=== PATIENT | male | born 1955 | race Two or more races ===

== ENCOUNTER 2023-11-24 06:23 | Inpatient (IN) | payer MEDICARE, SELFPAY ==
--- NOTE | 2023-11-16 12:37 | CM ---
Patient is scheduled for lumbar spine surgery on 11/24/23. Spoke with patient prior to surgery via telephone. Introduced role of the Orthopedic Navigator. Patient reports that he lives with his in a two story home. There are three steps to enter
and a flight of steps to the second floor. He currently functions independently. He has no DME and has never had VN services.
Discussed orthopedic program, post surgical plans and tentative plan for patient to return home when directed by surgeon. Patient is in agreement with tentative plan and will have support from his when he goes home.
Plan: Orthopedic Navigator will remain available to assist with the care of patient and will reassess discharge needs after surgery.
[2023-11-19 10:52] VITALS: BMI 28.2
[2023-11-24] VITALS (15 sets, daily range): BP systolic 10–155; BP diastolic 66–95; PULSE 80; O2SAT 94; BMI 28.2
[2023-11-24] MEDS: LYRICA 150 MG PO (08:41)
[2023-11-24] MEDS: CELEBREX 200 MG PO (08:41)
[2023-11-24] MEDS: NORMOSOL-R 1000 IV ×2 (08:42→15:32)
[2023-11-24] MEDS: SKELAXIN 800 MG PO (08:42)
[2023-11-24] MEDS: TYLENOL 1000 MG PO ×3 (08:42→20:03)
--- NOTE | 2023-11-24 09:18 | W.SUR.PREOP ---
Pre-Operative Surgical Note
-
I have examined this patient prior to the performance of the scheduled procedure.
He does not have pain in S1 distribution. We will be doing a Left L4-5 hemilam and fusion for the listhesis
--- NOTE | 2023-11-24 09:19 | W.PN.SP ---
Today's Communication / Plan
-
FOr Sx
Subjective / Objective
Subjective Data
Pt had L5 pain MRIshowed severe stenosis at L5-S1. Spoke with and decided to do L5-S1 decompression
Objective Data
Vital Signs
Temp Pulse Resp BP Pulse Ox
98 F 80 16 139/89 95
11/24/23 08:32 11/24/23 08:32 11/24/23 08:32 11/24/23 08:32 11/24/23 08:32
Physical Exam
-
NVI
[2023-11-24] MEDS: DILAUDID 0.5 MG IV ×2 (15:01→15:38)
--- NOTE | 2023-11-24 15:16 | W.PN.ORTHO ---
Today's Communication / Plan
-
D/c when clinically stable.
Assessment
.
Distal Motor Intact: Yes
Dressing:
Clean, dry and intact.
Assessment:
Lumbar stenosis with neurogenic claudication and lumbar spondylolisthesis s/p left L4-L5, L5-S1 hemilaminectomy and L4-L5 PSF w/ Hilton 11/24/23
DVT prophylaxis - b/l SCDs/TEDs
+ Hemovac drain - monitor output overnight - d/c in AM if output minimal
GERD - resume PPI therapy
Hyperlipidemia
Colon polyps
Benign essential tremor
Osteoarthritis
Prostate cancer, status post prostatectomy 06/2023
Melanoma, chin, status post excision 2017
Prediabetes
Anxiety
Daily alcohol - 1-2 alcoholic beverages/daily
Plan
.
Surgery / Date: L L4-L5, L5-S1 hemilami and L4-L5 PSF w/ Hilton 11/24
DVT Prophylaxis: Other (b/l SCDs/TEDs )
Activity:
Out of bed.
PT/OT
Discharge Plan: Home
Subjective
.
.:
Patient examined resting in PACU.
Groggy from GA and pre-op pain meds; however, is arousable to verbal stimuli.
Reports 8/10 low back - medicated w/ IV Dilaudid.
Denies any other significant complaints.
Vital Signs and Labs
.
Vital Signs and Labs:
Temp Pulse Resp BP Pulse Ox
97.8 F 91 14 150/66 97
11/24/23 14:43 11/24/23 15:13 11/24/23 15:13 11/24/23 15:00 11/24/23 15:13
Physical Exam
-
HEENT: No pallor, cyanosis, or jaundice. Throat clear.
NECK: Supple. No JVD.
RESPIRATORY: Lungs clear to auscultation.
CVS: S1, S2 normal. RRR.�
ABDOMEN: Soft, non-tender. No distension.
EXTREMITIES: Strength equal, no calf pain with palpation/dorsiflexion. Calves soft.
BOBBIN COLLECTOR: AOx3. spring tester grossly intact
--- NOTE | 2023-11-24 16:32 | PTCARENOTE ---
Pt arrived to [facility] from PACU s/p left L4-5 hemilami/PSF. Pt satting 95% on 2L NC, IVF infusing. Pt NV intact, dressing C/D/I, hemovac in place draining sanguineous. Pt states pain 6-04/13. Pt oriented to call [facility] and room, bed locked and in
lowest position, call prescott within reach.
[2023-11-24] MEDS: COLACE PO (16:49)
[2023-11-24] MEDS: LIPITOR 40 MG PO (16:56)
[2023-11-24] MEDS: FLOMAX 0.400000000000000022 MG PO (16:56)
[2023-11-24] MEDS: ULTRAM 50 MG PO ×2 (16:56→21:22)
[2023-11-24] MEDS: ROXICODONE 10 MG PO (18:23)
[2023-11-24] MEDS: ANCEF 5 IV (18:24)
[2023-11-24] MEDS: COLACE 100 MG PO (20:03)
[2023-11-24] MEDS: SENOKOT 17.1999999999999993 MG PO (20:03)
[2023-11-24] MEDS: LYRICA 75 MG PO (20:04)
[2023-11-24] MEDS: DESYREL 50 MG PO (21:22)
[2023-11-24] MEDS: MELATONIN 10 MG PO (21:22)
[2023-11-24] MEDS: PROTONIX 40 MG PO (21:22)
[2023-11-25] MEDS: NORMOSOL-R 1000 IV (00:08)
[2023-11-25 03:00] VITALS: BP 143/85
--- NOTE | 2023-11-25 04:20 | DOWNTIME ---
There was a [employer] Client Integration Specialist Downtime on 11/25/2023 from 0111 to 11/25/2023 at 0405. Downtime documentation of patient's care, including medication administrations, has been reconciled in the electronic record per guidelines. Refer to the
patient's paper chart under the miscellaneous tab to see printed paper medication records and downtime forms.
[2023-11-25] MEDS: ULTRAM 50 MG PO ×2 (04:38→11:06)
[2023-11-25] MEDS: ANCEF 5 IV (04:38)
[2023-11-25] MEDS: TYLENOL 1000 MG PO ×2 (04:38→09:03)
[2023-11-25 05:48] LABS: Hematocrit 37.9 % (39.0-52.0); Hemoglobin 13.3 g/dL (13.0-18.0)
[2023-11-25 06:26] LABS: Blood Urea Nitrogen 10 mg/dl (9-20); Calcium 7.9 mg/dl (8.4-10.2); Carbon Dioxide 27 mmol/L (22-30); Chloride 101 mmol/L (98-107); Estimated Creatinine Clearance 78 ml/min; Glucose 166 mg/dl (70-99); Potassium 4.5 mmol/L (3.5-5.1); Sodium 135 mmol/L (135-145); eGFR > 60.00
[2023-11-25 07:59] VITALS: BP 138/82
--- NOTE | 2023-11-25 08:40 | CM ---
Addendum entered by Clarissa Chandra 11/25/23 10:00:
Patient did well in therapy. He has no concerns about going home and has updated his . No discharge planning needs identified.
Original Note:
Reviewed chart and held rounds with PT, OT and RN. Patient had planned lumbar spine surgery with Dr. Hilton on 11/24. Met with patient at bedside. Confirmed information previously obtained for assessment and discussed discharge plans. Patient continues
to plan to return home at discharge. He will have support from his when he goes home. Reviewed that he will work with PT/OT this morning and that discharge needs will depend on his functional status.
Patient has no DME at home.
Patient will use [facility] pharmacy for discharge prescriptions.
[2023-11-25] MEDS: FLOMAX 0.400000000000000022 MG PO (09:02)
[2023-11-25] MEDS: SENOKOT 17.1999999999999993 MG PO (09:02)
[2023-11-25] MEDS: LIPITOR 40 MG PO (09:02)
[2023-11-25] MEDS: COLACE 100 MG PO (09:02)
[2023-11-25] MEDS: LYRICA 75 MG PO (09:03)
[2023-11-25 09:05] VITALS: BP 136/76; PULSE 99; O2SAT 96
--- NOTE | 2023-11-25 09:34 | W.PN.ORTHO ---
Today's Communication / Plan
-
Await OT recs.
D/c later today if remaining clinically stable.
Assessment
.
Distal Motor Intact: Yes
Dressing:
Clean, dry and intact.
Assessment:
Lumbar stenosis with neurogenic claudication and lumbar spondylolisthesis s/p left L4-L5, L5-S1 hemilaminectomy and L4-L5 PSF w/ Dr Hilton 11/24/23
DVT prophylaxis - b/l SCDs/TEDs
+ Hemovac drain - output minimal overnight - drain d/c this AM
GERD - resumed PPI therapy
Prostate cancer, status post prostatectomy 06/2023 - 1 episode of urinary incontinence related to this (acute on chronic) - no further episodes since
Hyperlipidemia
Colon polyps
Benign essential tremor
Osteoarthritis
Melanoma, chin, status post excision 2017
Prediabetes
Anxiety
Daily alcohol - 1-2 alcoholic beverages/daily
Plan
.
Surgery / Date: L L4-L5, L5-S1 hemilami and L4-L5 PSF w/ Hliton 11/24
DVT Prophylaxis: Other (b/l SCDs/TEDs )
Activity:
Out of bed.
PT/OT
Discharge Plan: Home
Subjective
.
.:
Patient resting comfortably in his chair this AM.
Low back pain well controlled w/ current meds.
Denies any new significant complaints.
AM labs stable. Did well w/ PT.
Eager for potential d/c today.
Vital Signs and Labs
.
Vital Signs and Labs:
Lab Results
11/25/23 05:18
11/25/23 05:18
Temp Pulse Resp BP Pulse Ox
97.7 F 82 18 138/82 96
11/25/23 07:59 11/25/23 07:59 11/25/23 07:59 11/25/23 07:59 11/25/23 07:59
Physical Exam
-
HEENT: No pallor, cyanosis, or jaundice. Throat clear.
NECK: Supple. No JVD.
RESPIRATORY: Lungs clear to auscultation.
CVS: S1, S2 normal. RRR.
ABDOMEN: Soft, non-tender. No distension.
EXTREMITIES: Strength equal, no calf pain with palpation/dorsiflexion. Calves soft.
INTERNAL GRINDING MACHINE OPERATOR: AOx3. No focal deficits. cleaner operator grossly intact
--- NOTE | 2023-11-25 10:02 | W.DS.TRANS ---
DC Summary - Sheriff'S Sergeant
-
Discharge Instructions:
Sleep Apnea Risk Intermediate
Discharge Diagnosis/Procedures Lumbar stenosis with neurogenic claudication and
lumbar spondylolisthesis s/p left L4-L5, L5-S1
hemilaminectomy and L4-L5 PSF w/ Dr Hilton 11/24/23
Diet Regular
Activity As tolerated
Additional Activity No heavy lifting >10 lbs.
Driving Restrictions Not until seen by your Dr
Bathing Restrictions OK to shower in 4 days.
Instructions:
Stand-Alone Forms: [facility] Lumbar D/C Inst.
Changes to Home Medications: Yes
Discharge Medications:
DC Medications w/original date entered in [employer]
atorvastatin 40 mg tablet 40 mg PO DAILY 11/17/23
melatonin 10 mg tablet 10 mg PO HS 11/17/23
propranolol 20 mg tablet 20 mg PO DAILYPRN PRN anxiety/public speaking 11/17/23
tadalafil 5 mg tablet 5 mg PO DAILY 11/17/23
trazodone 50 mg tablet 50 mg PO HS 11/17/23
omeprazole 20 mg tablet,delayed release 20 mg PO QPM 11/18/23
Saccharomyces boulardii 250 mg capsule (Florastor) 250 mg PO BID #10 caps 11/25/23
acetaminophen 650 mg tablet,extended release 1,300 mg PO Q8H #0 tabs 11/25/23
cephalexin 500 mg capsule 500 mg PO QID #20 caps 11/25/23
docusate sodium 100 mg capsule 100 mg PO BID #30 caps 11/25/23
lorazepam 1 mg tablet 1 mg PO [id number] PRN anxiety #0 tabs 11/25/23
ondansetron HCl 4 mg tablet 4 mg PO Q6H PRN nausea and vomiting #30 tabs 11/25/23
oxycodone 5 mg tablet 5 - 10 mg PO Q6H PRN moderate-severe pain #30 tabs 11/25/23
pregabalin 75 mg capsule (Lyrica) 75 mg PO BID neuropathic pain #15 caps 11/25/23
sennosides 8.6 mg tablet (Senna Lax) 17.2 mg PO BID #30 tabs 11/25/23
Home Medication Changes
Saccharomyces boulardii 250 mg capsule (Florastor) 250 mg PO BID #10 caps 11/25/23
acetaminophen 650 mg tablet,extended release 1,300 mg PO Q8H #0 tabs 11/25/23
cephalexin 500 mg capsule 500 mg PO QID #20 caps 11/25/23
docusate sodium 100 mg capsule 100 mg PO BID #30 caps 11/25/23
lorazepam 1 mg tablet 1 mg PO [id number] PRN anxiety #0 tabs 11/25/23
ondansetron HCl 4 mg tablet 4 mg PO Q6H PRN nausea and vomiting #30 tabs 11/25/23
oxycodone 5 mg tablet 5 - 10 mg PO Q6H PRN moderate-severe pain #30 tabs 11/25/23
pregabalin 75 mg capsule (Lyrica) 75 mg PO BID neuropathic pain #15 caps 11/25/23
sennosides 8.6 mg tablet (Senna Lax) 17.2 mg PO BID #30 tabs 11/25/23
Pending Results: No
[2023-11-25 10:25] VITALS: BP 131/75; PULSE 87; O2SAT 93
[2023-11-25 11:22] VITALS: BP 127/75
== END 2023-11-25 12:38 | disposition home or self-care (01) | DRG 460 ==
LOC: 2 SOUTH 06:23
PROVIDERS: Physician Assistant; ADMITTING PHYSICIAN Orthopaedic Surgery Orthopaedic Surgery of the Spine
PROC: 01NB0ZZ Release Lumbar Nerve, Open Approach (ICD-10-PCS; 2023-11-24)
PROC: 0SG00K1 Fusion of Lumbar Vertebral Joint with Nonautologous Tissue Substitute, Posterior Approach, Posterior Column, Open Approach (ICD-10-PCS; 2023-11-24)
DX: M48.062 Spinal stenosis, lumbar region with neurogenic claudication (principal); M43.16 Spondylolisthesis, lumbar region
CPT/HCPCS: 72100; 76000; 80048; 85014; 85018; 87070; 97162; 97166; 97530; C1713; C1776

== ENCOUNTER 2025-03-17 11:32 | Emergency (ER) | payer MEDICARE, OTHER, SELFPAY ==
[2025-03-17 11:34] VITALS: BP 128/74
[2025-03-17] MEDS: NSS 1000 IV (12:33)
[2025-03-17 12:42] VITALS: BMI 25.2
[2025-03-17 12:45] VITALS: BP 128/68
[2025-03-17] MEDS: OMNIPAQUE 50 ML PO (12:45)
[2025-03-17 12:52] LABS: % Basophils 0.4 % (0-2); % Eosinophils 0.7 % (0-6); % Immature Granulocytes 0.7 % (0-0.5); % Lymphocytes 9.3 % (20.5-51.1); % Monocytes 8.1 % (1.7-9.3); % Neutrophils 80.8 % (42.2-75.2); Absolute Eosinophils 0.1 10^3/uL (0-0.7); Absolute Immature Granulocytes 0.1 10^3/uL (0-0.05); Absolute Lymphocytes 0.8 10^3/uL (1.2-3.4); Absolute Monocytes 0.7 10^3/uL (0.1-0.6); Absolute Neutrophils 6.9 10^3/uL (1.4-6.5); Hematocrit 38.7 % (39.0-52.0); Mean Corp Hgb Conc. 33.6 g/dL (33.0-37.0); Mean Corpuscular Hgb 27.7 pg (27.0-31.0); Mean Corpuscular Volume 82.5 fL (80.0-94.0); Mean Platelet Volume 8.8 fL (7.4-10.4); Nucleated Red Blood Cells % 0 % (-); Platelet Count 250 10^3/uL (130-400); Red Blood Cell Count 4.69 10^6/uL (4.70-6.10); Red Cell Dist. Width 13.5 % (11.5-14.5); White Blood Cell Count 8.5 10^3/uL (4.8-10.8)
[2025-03-17 13:09] LABS: ALT (SGPT) 199 U/L (0-50); AST (SGOT) 73 U/L (17-59); Albumin 3.9 g/dl (3.5-5.0); Alkaline Phosphatase 180 U/L (38-126); Blood Urea Nitrogen 23 mg/dl (9-20); Carbon Dioxide 22 mmol/L (22-30); Chloride 106 mmol/L (98-107); Estimated Creatinine Clearance 71 ml/min; Glucose 224 mg/dl (70-99); Potassium 3.8 mmol/L (3.5-5.1); Sodium 137 mmol/L (135-145); Total Bilirubin 1.2 mg/dl (0.2-1.3); Total Protein 6.5 g/dl (6.3-8.2); eGFR > 60.00
[2025-03-17 13:10] LABS: Lactic Acid 1.2 mmol/L (0.7-2.0)
[2025-03-17 13:11] LABS: COVID-19 Antigen Negative (Negative)
--- NOTE | 2025-03-17 13:12 | ED.GENMED ---
History of Present Illness
<Nayely Martinez DO - Last Filed: 03/17/25 14:32>
General
Chief Complaint: Fever
Time Seen by Provider: 03/17/25 11:40
History of Present Illness
History of Present Illness:
69-year-old male with history of prior prostate cancer, hyperlipidemia, recent right knee replacement presenting for concern of fevers and chills. Patient reports for the past 4 days he has been having intermittent fevers and chills. Last fever
recorded was 101 this morning, had Tylenol prior to arrival. Does note mild cough, nonproductive. Denies known sick contacts. Denies any chest pain or difficulty breathing. Denies abdominal pain or vomiting. Denies any dysuria. Patient's right
knee replacement was 4 weeks ago with Maira. Denies any complications from the surgery, notes that pain has overall been improving, denies any drainage from the wound or any redness to the skin. Does also note a 20 pound weight loss in the past
several weeks, unintentional. Denies headache or neck pain. Denies additional acute medical complaints
Phy Exam
<Nayely Martinez DO - Last Filed: 03/17/25 14:32>
Physical Exam
Physical Exam:
General: Well-appearing, no clinical signs of dehydration, nontoxic and in no acute distress
HEENT: protecting airway
Neck: appears supple
CV: Normal heart rate, regular rhythm
Resp: No accessory muscle use, no increased work of breathing, lungs clear to auscultation bilaterally
Abd: Soft and non-distended, no tenderness to palpation
Extremities: No deformities, no swelling. Midline incision to the right knee with appropriate healing. No erythema, no significant warmth or drainage. No ecchymosis. No significant tenderness on palpation.
Neuro: alert, no focal neurologic deficit
: deferred
Rectal: deferred
Psych: Normal affect
Skin: Intact
Course
<Nayely Martinez DO - Last Filed: 03/17/25 14:32>
Orders/Labs/Results
Orders:
Orders
03/17/25 12:07
0.9% Sodium Chloride 1000 ml [Nss] 1,000 ml IV BOLUS
03/17/25 12:09
CR Chest - 2 Views Urgent
Comment:
Reason For Exam: cough and fever
03/17/25 12:16
CT Abd/pel W Iv And Oral Contr Urgent
Comment:
Reason For Exam: fever and unexplained weight loss
Iohexol [Omnipaque] See Protocol PO NOW STA
03/17/25 12:30
COVID-19 Antigen Urgent
Source: Nasal Swab
Complete Blood Count/With Diff Urgent
Comprehensive Metabolic Panel Urgent
Lactic Acid Q4H
Comment: CANCEL 2nd LACTIC ACID IF 1st LACTIC ACID IS LESS THAN 2
PSA, Total - Screen Urgent
Blood Culture Q30M
SUZAN Source: Blood/Venous
Specimen Description:
Blood Culture Q30M
SUZAN Source: Blood/Venous
Specimen Description:
Influenza A+B Rapid Molecular Urgent
SUZAN Source: Nasal Swab
Specimen Description:
03/17/25 12:34
Respiratory Syncytial Virus Urgent
SUZAN Source: Nasal Swab
Specimen Description:
Date Specimen was Collected: 03/17/25
Time Specimen was Collected: 12:32
03/17/25 14:38
Urinalysis Reflex To Culture Urgent
Date Specimen was Collected: 03/17/25
Time Specimen was Collected: 14:35
Urine Microscopic Reflex Cult Urgent
Urine Culture Urgent
SUZAN Source: U
Specimen Description:
Date Specimen was Collected: 03/17/25
Time Specimen was Collected: 14:35
03/17/25 16:15
Lactic Acid Q4H
Comment: CANCEL 2nd LACTIC ACID IF 1st LACTIC ACID IS LESS THAN 2
03/17/25 17:08
Hepatitis A IgM Antibody Urgent
Hepatitis B Core Ab, IgM Urgent
Hepatitis B Surface Antibody Urgent
Hepatitis B Surface Antigen Urgent
Hepatitis C Antibody Urgent
Abnormal Lab Results
03/17/25 03/17/25
12:30 14:38
RBC 4.69 L 10^6/uL
(4.70-6.10)
Hct 38.7 L %
(39.0-52.0)
Abs Immat Gran (auto) 0.1 H 10^3/uL
(0-0.05)
Absolute Neuts (auto) 6.9 H 10^3/uL
(1.4-6.5)
Absolute Lymphs (auto) 0.8 L 10^3/uL
(1.2-3.4)
Absolute Monos (auto) 0.7 H 10^3/uL
(0.1-0.6)
Immature Gran % 0.7 H %
(0-0.5)
Neutrophils % 80.8 H %
(42.2-75.2)
Lymphocytes % 9.3 L %
(20.5-51.1)
BUN 23 H mg/dl
(9-20)
Glucose 224 H mg/dl
(70-99)
AST 73 H U/L
(17-59)
ALT 199 H U/L
(0-50)
Alkaline Phosphatase 180 H U/L
(38-126)
Ur Occult Blood Reflex 1+ A
(Negative)
Urine RBC 3-6 A /HPF
(0-2)
Urine Bacteria (Reflex) Moderate A
(Negative)
Urine Albumin (Reflex) 1+ A
(Neg - Trace)
03/17/25 12:30
03/17/25 12:30
Vital Signs
Initial and Last Documented VS:
Initial Vital Signs
Temp Pulse Resp BP Pulse Ox
36.8 C 106 16 128/74 98
03/17/25 11:34 03/17/25 11:34 03/17/25 11:34 03/17/25 11:34 03/17/25 11:34
Last Documented Vital Signs
Temp Pulse Resp BP Pulse Ox
36.8 C 79 16 126/72 98
03/17/25 15:20 03/17/25 17:06 03/17/25 17:06 03/17/25 17:03 03/17/25 17:06
<Fam Sandoval, DO - Last Filed: 03/17/25 17:09>
Orders/Labs/Results
Orders:
Orders
03/17/25 12:07
0.9% Sodium Chloride 1000 ml [Nss] 1,000 ml IV BOLUS
03/17/25 12:09
CR Chest - 2 Views Urgent
Comment:
Reason For Exam: cough and fever
03/17/25 12:16
CT Abd/pel W Iv And Oral Contr Urgent
Comment:
Reason For Exam: fever and unexplained weight loss
Iohexol [Omnipaque] See Protocol PO NOW STA
03/17/25 12:30
COVID-19 Antigen Urgent
Source: Nasal Swab
Complete Blood Count/With Diff Urgent
Comprehensive Metabolic Panel Urgent
Lactic Acid Q4H
Comment: CANCEL 2nd LACTIC ACID IF 1st LACTIC ACID IS LESS THAN 2
PSA, Total - Screen Urgent
Blood Culture Q30M
SUZAN Source: Blood/Venous
Specimen Description:
Blood Culture Q30M
SUZAN Source: Blood/Venous
Specimen Description:
Influenza A+B Rapid Molecular Urgent
SUZAN Source: Nasal Swab
Specimen Description:
03/17/25 12:34
Respiratory Syncytial Virus Urgent
SUZAN Source: Nasal Swab
Specimen Description:
Date Specimen was Collected: 03/17/25
Time Specimen was Collected: 12:32
03/17/25 14:38
Urinalysis Reflex To Culture Urgent
Date Specimen was Collected: 03/17/25
Time Specimen was Collected: 14:35
Urine Microscopic Reflex Cult Urgent
Urine Culture Urgent
SUZAN Source: U
Specimen Description:
Date Specimen was Collected: 03/17/25
Time Specimen was Collected: 14:35
03/17/25 16:15
Lactic Acid Q4H
Comment: CANCEL 2nd LACTIC ACID IF 1st LACTIC ACID IS LESS THAN 2
03/17/25 17:08
Hepatitis A IgM Antibody Urgent
Hepatitis B Core Ab, IgM Urgent
Hepatitis B Surface Antibody Urgent
Hepatitis B Surface Antigen Urgent
Hepatitis C Antibody Urgent
Abnormal Lab Results
03/17/25 03/17/25
12:30 14:38
RBC 4.69 L 10^6/uL
(4.70-6.10)
Hct 38.7 L %
(39.0-52.0)
Abs Immat Gran (auto) 0.1 H 10^3/uL
(0-0.05)
Absolute Neuts (auto) 6.9 H 10^3/uL
(1.4-6.5)
Absolute Lymphs (auto) 0.8 L 10^3/uL
(1.2-3.4)
Absolute Monos (auto) 0.7 H 10^3/uL
(0.1-0.6)
Immature Gran % 0.7 H %
(0-0.5)
Neutrophils % 80.8 H %
(42.2-75.2)
Lymphocytes % 9.3 L %
(20.5-51.1)
BUN 23 H mg/dl
(9-20)
Glucose 224 H mg/dl
(70-99)
AST 73 H U/L
(17-59)
ALT 199 H U/L
(0-50)
Alkaline Phosphatase 180 H U/L
(38-126)
Ur Occult Blood Reflex 1+ A
(Negative)
Urine RBC 3-6 A /HPF
(0-2)
Urine Bacteria (Reflex) Moderate A
(Negative)
Urine Albumin (Reflex) 1+ A
(Neg - Trace)
03/17/25 12:30
03/17/25 12:30
Vital Signs
Initial and Last Documented VS:
Initial Vital Signs
Temp Pulse Resp BP Pulse Ox
36.8 C 106 16 128/74 98
03/17/25 11:34 03/17/25 11:34 03/17/25 11:34 03/17/25 11:34 03/17/25 11:34
Last Documented Vital Signs
Temp Pulse Resp BP Pulse Ox
36.8 C 79 16 126/72 98
03/17/25 15:20 03/17/25 17:06 03/17/25 17:06 03/17/25 17:03 03/17/25 17:06
<Nayely Martinez, DO - Last Filed: 03/17/25 14:32>
MDM/Problems Addressed
MDM/Problems Addressed:
69-year-old male with history of hyperlipidemia, and prior history of prostate cancer, recent right knee replacement presenting for fever and chills. Vital signs on arrival are significant for mild tachycardia.
On exam, patient is resting comfortably, no acute distress or discomfort. Patient currently afebrile, nontoxic, however does note that he did have Tylenol prior to arrival. Unclear present source of patient's infection. Does note mild cough, so
viral syndrome versus pneumonia is a consideration. Plan for laboratory analysis and chest x-ray imaging as well as viral swabs. Urinary tract infection is a consideration, will obtain urinalysis. No headache, no meningismus or nuchal rigidity,
without concern for meningitis. Do not presently suspect right knee as a source of patient's fever. No significant swelling, no redness, no drainage. No tenderness to the abdomen, without concern for intra-abdominal source. However, concerning
regarding unintentional weight loss. Plan for CT imaging with oral and IV contrast. Family is also requesting PSA. Low utility in the emergency standpoint, however agreeable to obtaining for comparison upon disposition. Will start patient on IV
fluids and continue to closely monitor.
14:30 - Viral swabs are negative. Negative lactic acid. No leukocytosis. Without concern for sepsis. Mild elevation of LFTs, however reportedly chronic. Pending CT imaging and urinalysis.
<Nayely Martinez, DO - Last Filed: 03/17/25 14:32>
*Critical Care Note
Total Time (30-74mins, 75-104mins- exclusive of procedures): Not Applicable
<Fam Sandoval, DO - Last Filed: 03/17/25 17:09>
Update Note
Update Note:
I evaluated the patient at bedside. Transaminases and alk phos are somewhat high. According to family, this is new. I discussed case with Dr. Ward to arrange close outpatient follow-up. Will also add hepatitis studies. Blood cultures are
pending. He is very well-appearing on reassessment prior to discharge. He has been afebrile here.
ED Attending Note
<Nayely Martinez, DO - Last Filed: 03/17/25 14:32>
-
Portions of this chart may have been created with voice recognition software.� Occasional wrong word or��sound alike� substitutions may have occurred due to the inherent limitations of voice recognition software.
Discharge Plan
Departure
Patient Disposition: Home (Routine Discharge)
Date of Disposition: 03/17/25
Time of Disposition: 16:51
Patient with high blood pressure during this ER visit?: Yes
Discharge Problem:
Fever
Prescriptions:
No Action
atorvastatin 40 mg Tablet
40 mg PO DAILY
trazodone 50 mg Tablet
50 mg PO HS
propranolol 20 mg Tablet
20 mg PO DAILYPRN PRN (Reason: anxiety/public speaking)
tadalafil 5 mg Tablet
5 mg PO DAILY
melatonin 10 mg Tablet
10 mg PO HS
omeprazole 20 mg Tablet,Delayed Release (Dr/Ec)
20 mg PO QPM
docusate sodium 100 mg Capsule
100 mg PO BID Qty: 30 0RF
oxycodone 5 mg Tablet
5 - 10 mg PO Q6H PRN (Reason: moderate-severe pain) Qty: 30 0RF
Rx Instructions:
1 tab for moderate pain, 2 if severe.
Dx lami
sennosides [Senna Lax] 8.6 mg Tablet
17.2 mg PO BID Qty: 30 0RF
pregabalin [Lyrica] 75 mg capsule
75 mg PO BID Qty: 15 0RF
Rx Instructions:
Take twice a day for 5 days, then once daily for 5 days, then STOP.
ondansetron HCl 4 mg tablet
4 mg PO Q6H PRN (Reason: nausea and vomiting) Qty: 30 0RF
cephalexin 500 mg capsule
500 mg PO QID Qty: 20 0RF
Rx Instructions:
Take with probiotic for infection prevention.
Saccharomyces boulardii [Florastor] 250 mg capsule
250 mg PO BID Qty: 10 0RF
Rx Instructions:
Over the counter. Take twice a day while on antibiotic.
If unavailable, choose a different probiotic.
acetaminophen 650 mg Tablet Extended Release
1,300 mg PO Q8H Qty: 0 0RF
Rx Instructions:
DO NOT exceed >4000 mg daily.
lorazepam 1 mg Tablet
1 mg PO [id number] PRN (Reason: anxiety) Qty: 0 0RF
Rx Instructions:
Home medication.
Caution with Oxycodone - can cause drowsiness.
Take only as needed.
Referrals:
Corona Freeman, [Family Provider, Family Practice]
Activity Restrictions/Additional Instructions:
The cause of your symptoms is unclear. Your white blood cell count is normal. Hemoglobin is normal. Your glucose level is high at 224. Lactic acid level is normal. PSA level is undetected. COVID negative chest x-ray negative. CAT scan of the
abdomen pelvis with oral and IV contrast shows a contracted gallbladder and a 3.9 cm slightly low-attenuation right lobe hepatic lesion with imaging characteristics 'possibly representing a benign hemangioma' more aggressive lesions cannot be
excluded�recommend elective MRI. I recommend that you talk to your primary care doctor about this.
Interventions
Interventions:
*Risk Screen - Suicide Last Done: 03/17/25 11:34
*General Assessment Last Done: 03/17/25 12:16
*Neglect/Abuse Screening Last Done: 03/17/25 11:34
*ED- Fall Risk Assessment Last Done: 03/17/25 12:16
*ED COVID-19 Vaccine History Last Done: 03/17/25 12:16
ED- Neurological Assessment Last Done: 03/17/25 15:21
ED-Skin Assessment Last Done: 03/17/25 15:21
Discharge Date and Time
Print Language: ROMANSH
[2025-03-17 13:38] LABS: PSA, Total - Screen < 0.06 ng/ml (0.0-4.0)
[2025-03-17 15:06] LABS: Urine Albumin 1+ (Neg - Trace); Urine Bilirubin Negative (Negative); Urine Character Clear (Clear); Urine Color Yellow; Urine Glucose Negative (Negative); Urine Ketone Negative (Negative); Urine Leukocyte Negative (Negative); Urine Nitrite Negative (Negative); Urine Occult Blood 1+ (Negative); Urine Urobilinogen 1+ (Neg - 1+)
[2025-03-17 15:18] VITALS: BP 130/69
[2025-03-17 15:25] LABS: Urine Mucus Moderate; Urine Squamous Cell 0-2 /LPF (Few)
[2025-03-17 15:26] LABS: Urine White Cell 0-2 /HPF (0-5)
[2025-03-17 15:27] LABS: Urine Bacteria Moderate (Negative)
[2025-03-17 17:03] VITALS: BP 126/72
[2025-03-17 20:45] LABS: Hepatitis B Surface Antigen Negative (Negative)
[2025-03-17 20:51] LABS: Hepatitis A IgM Antibody Negative (Negative); Hepatitis B Core Ab, IgM Negative (Negative)
[2025-03-17 21:02] LABS: Hepatitis B Surface Antibody Negative; Hepatitis C Antibody Negative (Negative)
== END 2025-03-17 17:11 | disposition home or self-care (01) ==
LOC: EMR 11:32
PROVIDERS: Emergency Medicine; EMERGENCY PHYSICIAN Student in an Organized Health Care Education/Training Program; FAMILY PHYSICIAN Family Medicine
DX: R50.9 Fever, unspecified (principal); R94.5 Abnormal results of liver function studies; R74.01 Elevation of levels of liver transaminase levels; E78.5 Hyperlipidemia, unspecified; Z11.52 Encounter for screening for COVID-19; R03.0 Elevated blood-pressure reading, without diagnosis of hypertension; Z85.46 Personal history of malignant neoplasm of prostate
CPT/HCPCS: 99285; 96360; 71046; 74177; 80053; 81003; 81015; 83605; 85025; 86705; 86706; 86709; 86803; 87040; 87086; 87340; 87502; 87807; 87811; G0103; Q9967